=== PATIENT | female | born 1975 | race African-American/Black ===

== ENCOUNTER 2016-11-11 15:40 | Emergency (ER) | payer MEDICAID ==
[~2016-11-11] VITALS: Ht 167.6 cm; Wt 55.3 kg
[~2016-11-11 15:40] MED LIST: ADVAIR 100-501 EACH INH; IBUPROFEN800 MG ORAL
[2016-11-11 16:02] VITALS: BP 122/55
--- NOTE | 2016-11-11 16:14 | Emergency Room Report ---
History of Present Illness General Chief Complaint: Dyspnea/Respdistress Source: Patient Present Illness HPI 41-year-old female presents to emergency Department complaining of cough and wheezing x2 days with history of asthma. Patient states that her albuterol inhaler treatments at home are not working patient states she is currently out of her prescription Dulera and is forced to use old albuterol inhaler which provides minimal relief. She is also requesting medication refill for Dulera. She denies nausea, vomiting, fevers, chills, dyspnea. Patients denies cardiac disease or lower extremity edema. Denies CP, Palpitations, LOC, AMS, dizziness, Changes in Vision, Sensation, paresthesias, or a sudden severe headache. Allergies: Coded Allergies: No Known Allergies (Unverified , 10/04/14) Patient History Past Medical History: see triage record, asthma Past Surgical History: none Pertinent Family History: none Last Menstrual Period: 10/31/16 Now: No Immunizations: UTD Reviewed Nursing Documentation: PMH: Agreed, PSxH: Agreed Nursing Documentation-PMH Hx Asthma: Yes Review of Systems All Other Systems: negative except mentioned in HPI Physical Exam Vital Signs Date Time Temp Pulse Resp B/P Pulse Ox O2 Delivery O2 Flow Rate FiO2 11/11/16 15:52 98.2 84 20 122/55 96 Room Air Sp02 EP Interpretation: reviewed, normal General Appearance: no apparent distress, alert, GCS 15, non-toxic Head: normocephalic, atraumatic Eyes: bilateral eye PERRL, bilateral eye normal inspection ENT: hearing grossly normal, normal pharynx, no angioedema, normal voice Neck: full range of motion, supple/symm/no masses Respiratory: chest non-tender, lungs clear, normal breath sounds, speaking full sentences, wheezing - scant diffuse expiratory wheezes Cardiovascular #1: regular rate, rhythm, no edema Gastrointestinal: normal bowel sounds, non tender, soft, no guarding, no rebound Rectal: deferred Genitourinary: normal inspection, no CVA tenderness Musculoskeletal: back normal, gait/station normal, normal range of motion, non- tender, no calf tenderness Neurologic: alert, oriented x3, responsive, motor strength/tone normal, sensory intact, speech normal Psychiatric: judgement/insight normal, memory normal, mood/affect normal, no suicidal/homicidal ideation Reflexes: 4+ bicep (R), 4+ bicep (L), 4+ tricep (R), 4+ tricep (L), 4+ knee (R) , 4+ knee (L) Skin: normal color, no rash, warm/dry, well hydrated Lymphatic: no adenopathy Medical Decision Making PA Attestation Dr. pitts is my supervising Physician whom patient management has been discussed with. Diagnostic Impression: Primary Impression: Asthma exacerbation, mild ER Course Pt. presents to the ED c/o cough and wheezing x 2 days, Pt. has a hx of asthma, and inhaler treatments at home are not helping as she is out of her dulera and only has albuterol. pt. request dulera refill as well. Ddx considered but are not limited to asthma exacerbation, CHF, URI, pneumonia, PE, strep pharyngitis, meningitis. Vital signs: Pt. is afebrile, VS are WNL H&PE are most consistent with URI, asthma exacerbation ORDERS: none required at this time, the diagnosis is clinical ED INTERVENTIONS: -Albuterol nebulized treatment. - re-examination post nebulized treatment lungs are CTA bilaterally. DISCHARGE: At this time pt. is stable for d/c to home. Will provide printed patient care instructions, and any necessary prescriptions. Care plan and follow up instructions have been discussed with the patient prior to discharge. Last Vital Signs Date Time Temp Pulse Resp B/P Pulse Ox O2 Delivery O2 Flow Rate FiO2 11/11/16 16:02 97.8 78 19 122/55 96 Room Air Patient Instructions: Asthma, Adult, [id number] Additional Instructions: Take medications as directed. Follow up with PCP in 3-5 days Return sooner to ED if new symptoms occur, or current symptoms become worse. Pat Gutierrez Nov 11, 2016 16:14
[2016-11-11] MEDS ORDERED: Albuterol ud Inhalation HHN ONE (16:15)
[2016-11-11] MEDS ORDERED: DULERA 100 MCG/13 GM INH (16:34)
[2016-11-11 16:43] VITALS: BP 120/62
== END 2016-11-11 16:43 | disposition home or self-care (01) ==
LOC: EMR 16:20
DX: J45.901 Unspecified asthma with (acute) exacerbation (principal)
CPT/HCPCS: 94640; 94664; 99283

== ENCOUNTER 2017-03-15 18:21 | Emergency (ER) | payer MEDICAID ==
[~2017-03-15] VITALS: Ht 165.1 cm; Wt 55.3 kg
[~2017-03-15 18:21] MED LIST changes: +DULERA 100 MCG/13 GM INH
[2017-03-15] MEDS ORDERED: KENALOG 0.5% CR15 GM TP (20:12)
[2017-03-15] MEDS ORDERED: CEPHALEXIN500 MG ORAL (20:12)
[2017-03-15 20:35] VITALS: BP 116/72
--- NOTE | 2017-03-15 22:05 | Emergency Room Report ---
History of Present Illness General Chief Complaint: Skin Rash/Abscess Source: Patient Present Illness HPI The patient is a 42-year-old female presenting for possible allergic reaction. The patient states that she had developed an infection of the left side of the face 2 weeks prior and was placed on Keflex which was working. She was also given a topical antibiotic And then began to develop a rash in the areas where she placed it. The affected area on the face was initially only painful but then began to itch after applying this antibiotic. Pain is now described as a 5 /10 dull ache to the left side of the mouth and does not radiate. Pain worse with touch. The patient states that the swelling to the area has decreased. Patient states that she has 2 days left of antibiotics. She denies any known allergies. She denies any other symptoms including fever, chills, sore throat, cough, shortness of breath, chest pain Allergies: Coded Allergies: No Known Allergies (Unverified , 03/15/17) Patient History Past Medical History: see triage record Pertinent Family History: none Last Menstrual Period: february 20 Now: No Reviewed Nursing Documentation: PMH: Agreed, PSxH: Agreed Nursing Documentation-PMH Past Medical History: No History, Except For Hx Asthma: Yes Review of Systems All Other Systems: negative except mentioned in HPI Physical Exam Vital Signs Date Time Temp Pulse Resp B/P Pulse Ox O2 Delivery O2 Flow Rate FiO2 03/15/17 19:13 97.9 75 16 116/72 98 Sp02 EP Interpretation: reviewed, normal General Appearance: no apparent distress, alert, GCS 15, non-toxic Head: normocephalic, atraumatic Eyes: bilateral eye PERRL, bilateral eye normal inspection ENT: hearing grossly normal, normal pharynx, no angioedema, normal voice, uvula midline Neck: full range of motion, supple/symm/no masses Respiratory: chest non-tender, lungs clear, normal breath sounds, speaking full sentences Musculoskeletal: back normal, gait/station normal, normal range of motion, non- tender Neurologic: alert, oriented x3, responsive, motor strength/tone normal, sensory intact, speech normal Psychiatric: judgement/insight normal, memory normal, mood/affect normal, no suicidal/homicidal ideation Skin: warm/dry, normal turgor, rash - Lateral to L corner of mouth: 3cm ovoid erythematous maculopapular lesion. Lymphatic: no adenopathy Medical Decision Making PA Attestation Dr. Darby is my supervising physician. Patient management was discussed with my supervising physician Diagnostic Impression: Primary Impression: Cellulitis Qualified Codes: L03.211 - Cellulitis of face Additional Impression: Allergic reaction Qualified Codes: T78.40XA - Allergy, unspecified, initial encounter ER Course The patient is a 42-year-old female presenting for possible allergic reaction Ddx considered include but not limited to insect bite, contact dermatitis, eczema, cellulitis PE: vitals WNL. NAD Lateral to L corner of mouth: 3cm ovoid erythematous maculopapular lesion. No lymphadenopathy. No angioedema Lungs clear to auscultation bilaterally The patient will discontinue using the topical ointment. She is given an extension of Keflex and will apply steroid cream to the effected area. She will follow up with PMD. ER precautions are given Last Vital Signs Date Time Temp Pulse Resp B/P Pulse Ox O2 Delivery O2 Flow Rate FiO2 03/15/17 19:13 97.9 75 16 116/72 98 Status: improved Disposition: HOME, SELF-CARE Condition: Improved Scripts Cephalexin* (KEFLEX*) 500 Mg Capsule 500 MG ORAL EVERY 12 HOURS, #10 CAP 0 Refills Prov: CHERIE BENDER 03/15/17 Triamcinolone Acet (Triamcinolone Acetonide) 15 Gm Cream..g. 1 APPLIC TP TID, #15 GM Prov: CHERIE BENDERA. 03/15/17 Referrals: NON PHYSICIAN (PCP) Patient Instructions: Rash Additional Instructions: I discussed my findings with the patient. All questions and concerns have been answered. Treatment and medication compliance have been addressed. I advised the patient that they need to follow up with PMD in 3-5 days. Return to ED if symptoms worsen, new symptoms arise, or if needed for any reason. Patient verbalized understanding of discharge instructions. Please see beater dumper if symptoms continue or worsen CHERIE BENDER March 15, 2017 22:05
== END 2017-03-15 20:32 | disposition home or self-care (01) ==
LOC: EMR 19:45
DX: L03.211 Cellulitis of face (principal); T78.40XA Allergy, unspecified, initial encounter; X58.XXXA Exposure to other specified factors, initial encounter; Y93.9 Activity, unspecified; Y92.9 Unspecified place or not applicable; J45.909 Unspecified asthma, uncomplicated
CPT/HCPCS: 99284

== ENCOUNTER 2017-07-14 07:51 | Emergency (ER) | payer MEDICAID ==
[~2017-07-14] VITALS: Ht 167.6 cm; Wt 54.4 kg
[~2017-07-14 07:51] MED LIST changes: +CEPHALEXIN500 MG ORAL; +KENALOG 0.5% CR15 GM TP
[2017-07-14 08:01] VITALS: BP 114/75
--- NOTE | 2017-07-14 08:09 | Emergency Room Report ---
History of Present Illness General Chief Complaint: Nausea, Vomiting, and Diarrhea Source: Patient, Medical Record Present Illness HPI 42 yo female with no sig pmhx p/w nausea vomiting and diarrhea for one day. Patient states symptoms started yesterday after she had lunch at [employer] restaurant. Pt reports nausea but no vomiting, more than 7 episodes of watery non bloody diarrhea. Patient also complains of mild generalized crampy abdominal pain. Denies fever, chills. No hx of abdominal surgeries. Allergies: Coded Allergies: No Known Allergies (Unverified , 03/15/17) Patient History Past Medical History: see triage record Past Surgical History: none Pertinent Family History: none Last Menstrual Period: 06/23/17 Now: No Reviewed Nursing Documentation: PMH: Agreed, PSxH: Agreed Nursing Documentation-PMH Past Medical History: No History, Except For Hx Asthma: Yes Review of Systems All Other Systems: negative except mentioned in HPI Physical Exam Vital Signs Date Time Temp Pulse Resp B/P (MAP) Pulse Ox O2 Delivery O2 Flow Rate FiO2 07/14/17 07:55 97.9 70 14 114/75 100 Room Air Sp02 EP Interpretation: reviewed, normal General Appearance: normal inspection, well appearing, no apparent distress, alert, GCS 15, non-toxic, other - Conversing appropriately at bedside, appears well-hydrated Head: normocephalic, atraumatic Eyes: bilateral eye normal inspection, bilateral eye PERRL, bilateral eye EOMI ENT: normal ENT inspection, normal pharynx, normal voice, moist mucus membranes Neck: normal inspection, full range of motion, supple Respiratory: normal inspection, lungs clear, normal breath sounds, no respiratory distress, no retraction, no wheezing, speaking full sentences, chest symmetrical Cardiovascular #1: normal inspection, regular rate, rhythm, no edema, normal capillary refill Cardiovascular #2: 2+ radial (R), 2+ radial (L) Gastrointestinal: normal inspection, non tender, soft, non-distended, no guarding, other - Nontender all quadrants of the abdomen. Musculoskeletal: normal inspection, back normal, normal range of motion, non- tender Neurologic: normal inspection, alert, oriented x3, responsive, motor strength/ tone normal, sensory intact, normal gait, speech normal Psychiatric: normal inspection, judgement/insight normal, memory normal Skin: normal inspection, normal color, no rash, warm/dry, well hydrated, normal turgor Medical Decision Making Diagnostic Impression: Primary Impression: Nausea, vomiting, and diarrhea ER Course 42 yo female with nausea vomiting and diarrhea Differential Diagnosis: Gastritis, gastroenteritis, cholecystitis, appendicitis, diverticulitis, UTI/ pyelo At this time abdomen is soft nontender, not likely to have acute intra- abdominal surgical pathology, will hold CT for now. Plan: Basic labs, ua Zofran, IVF ER course: Patient has remained stable during ED stay.Received fluids Repeat abdominal exam is nontender. no vomiting in ED. appears well Lipase mildly elevated, but not criteria for pancreatitis Disposition: Patient is to be discharged to home. Patient is instructed to follow up with their primary care doctor within 2 days. Strict return precautions discussed with patient such as fever, chills, worsening/severe pain, nausea, vomiting, which may indicate severe illness. Patient verbalizes understanding and agrees with plan. Please note that this Emergency Department Report was dictated using [employer] cutting machine feeder technology software, occasionally this can lead to erroneous entry secondary to interpretation by the dictation equipment Laboratory Tests Test 07/14/17 03:41 07/14/17 08:00 Urine Color Pale yellow Urine Appearance Clear Urine pH 5 (4.5-8.0) Urine Specific [place] 1.020 (1.005-1.035) Urine Protein Negative (NEGATIVE) Urine Glucose (UA) Negative (NEGATIVE) Urine Ketones Negative (NEGATIVE) Urine Occult Blood Negative (NEGATIVE) Urine Nitrite Negative (NEGATIVE) Urine Bilirubin Negative (NEGATIVE) Urine Urobilinogen Normal MG/DL (0.0-1.0) Urine Leukocyte Esterase 1+ (NEGATIVE) H Urine RBC 0-2 /HPF (0 - 2) Urine WBC 2-4 /HPF (0 - 2) Urine Squamous Epithelial Cells Moderate /LPF (NONE/OCC) H Urine Bacteria Few /HPF (NONE) Urine HCG, Qualitative Negative White Blood Count 5.2 K/UL (4.8-10.8) Red Blood Count 4.18 M/UL (4.20-5.40) L Hemoglobin 12.3 G/DL (12.0-16.0) Hematocrit 38.1 % (37.0-47.0) Mean Corpuscular Volume 91 FL (80-99) Mean Corpuscular Hemoglobin 29.5 PG (27.0-31.0) Mean Corpuscular Hemoglobin Concent 32.4 G/DL (32.0-36.0) Red Cell Distribution Width 14.7 % (11.6-14.8) Platelet Count 375 K/UL (150-450) Mean Platelet Volume 6.5 FL (6.5-10.1) Neutrophils (%) (Auto) 53.4 % (45.0-75.0) Lymphocytes (%) (Auto) 24.9 % (20.0-45.0) Monocytes (%) (Auto) 10.4 % (1.0-10.0) H Eosinophils (%) (Auto) 9.4 % (0.0-3.0) H Basophils (%) (Auto) 1.9 % (0.0-2.0) Sodium Level 135 mEQ/L (135-145) Potassium Level 4.0 mEQ/L (3.4-4.9) Chloride Level 102 mEQ/L (98-107) Carbon Dioxide Level 22 mEQ/L (20-30) Anion Gap 11 (5-15) Blood Urea Nitrogen 13 mg/dL (7-23) Creatinine 1.1 mg/dL (0.5-0.9) H Estimate Glomerular Filtration Rate > 60 mL/min (>60) Glucose Level 99 mg/dL (74-106) Calcium Level 9.0 mg/dL (8.6-10.2) Total Bilirubin 0.5 mg/dL (0.0-1.2) Aspartate Amino Transferase (AST) 17 U/L (5-40) Alanine Aminotransferase (ALT) 10 U/L (3-33) Alkaline Phosphatase 57 U/L (35-104) Total Protein 7.7 g/dL (6.6-8.7) Albumin 4.4 g/dL (3.5-5.2) Globulin 3.3 g/dL Albumin/Globulin Ratio 1.3 (1.0-2.7) Lipase 115 U/L (< 60) H Rhythm Strip Diag. Results EP Interpretation: yes Rate: 70 Rhythm: NSR, no PVC's, no ectopy Last Vital Signs Date Time Temp Pulse Resp B/P (MAP) Pulse Ox O2 Delivery O2 Flow Rate FiO2 07/14/17 08:01 14 114/75 100 Room Air 07/14/17 07:55 97.9 70 Disposition: HOME, SELF-CARE Condition: Improved Retino,Clairose M.D. Jul 14, 2017 08:09
[2017-07-14 08:27] LABS: BASOPHILS % (AUTO) 1.9 % (0.0-2.0); EOSINOPHILS % (AUTO) 9.4 % (0.0-3.0); LYMPHOCYTES % (AUTO) 24.9 % (20.0-45.0); MEAN CORPUSCULAR HEMOGLOBIN 29.5 PG (27.0-31.0); MEAN CORPUSCULAR HGB CONC 32.4 G/DL (32.0-36.0); MEAN CORPUSCULAR VOLUME 91 FL (80-99); MEAN PLATELET VOLUME 6.5 FL (6.5-10.1); MONOCYTES % (AUTO) 10.4 % (1.0-10.0); NEUTROPHILS % (AUTO) 53.4 % (45.0-75.0); PLATELET COUNT 375 K/UL (150-450); RED BLOOD COUNT 4.18 M/UL (4.20-5.40); RED CELL DISTRIBUTION WIDTH 14.7 % (11.6-14.8); WHITE BLOOD COUNT 5.2 K/UL (4.8-10.8)
[2017-07-14 08:35] VITALS: BP 111/63
[2017-07-14 09:03] LABS: APPEARANCE,URINE CLEAR; KETONES,URINE NEGATIVE (NEGATIVE); LEUKOCYTE ESTERASE ,URINE 1+ (NEGATIVE); NITRITE,URINE NEGATIVE (NEGATIVE); PH,URINE 5 (4.5-8.0); PROTEIN,URINE NEGATIVE (NEGATIVE); UROBILINOGEN,URINE NORMAL MG/DL (0.0-1.0)
[2017-07-14 09:04] LABS: ALANINE AMINOTRANSFERASE 10 U/L (3-33); ALBUMIN/GLOBULIN RATIO 1.3 (1.0-2.7); ANION GAP 11 (5-15); ASPARTATE AMINO TRANSFERASE 17 U/L (5-40); CARBON DIOXIDE 22 mEQ/L (20-30); CHLORIDE 102 mEQ/L (98-107); CREATININE 1.1 mg/dL (0.5-0.9); GLOMERULAR FILTRATION RATE > 60 mL/min (>60); HEMOLYSIS 0; LIPASE 115 U/L (< 60); SODIUM 135 mEQ/L (135-145); TOTAL PROTEIN 7.7 g/dL (6.6-8.7)
[2017-07-14 09:13] LABS: BACTERIA,URINE FEW /HPF; RBC,URINE 0-2 /HPF (0 - 2); SQUAMOUS EPITHELIAL CELL,UR MODERATE /LPF (NONE/OCC)
[2017-07-14 10:59] VITALS: BP 101/62
== END 2017-07-14 10:50 | disposition home or self-care (01) ==
LOC: EMR 08:21
DX: R11.2 Nausea with vomiting, unspecified (principal); R19.7 Diarrhea, unspecified; J45.909 Unspecified asthma, uncomplicated
CPT/HCPCS: 36415; 80053; 81003; 81025; 82962; 83690; 85025; 96361; 96374; 99284; J2405

== ENCOUNTER 2017-08-01 12:59 | Emergency (ER) | payer MEDICAID ==
[~2017-08-01] VITALS: Ht 170.2 cm; Wt 56.7 kg
[2017-08-01] MEDS ORDERED: DuoNeb 0.5-3(2.5)mg/3ml neb HHN ONE (13:45)
[2017-08-01] MEDS ORDERED: DULERA 100 MCG/13 GM INH (13:46)
[2017-08-01 14:14] VITALS: BP 111/77
--- NOTE | 2017-08-04 14:36 | Emergency Room Report ---
History of Present Illness General Chief Complaint: Dyspnea/Respdistress Source: Patient Present Illness HPI This is a 42-year-old female who presented after increased difficulty breathing. Patient had prior history of asthma. Patient had been out of her medication which was Dulera inhaler. The patient had had not been having any fever. She denied productive cough. She denied any chest pain. Patient stated that she had interpreted nonproductive cough which is worse since past few days. The patient denies severe shortness of breath this time. She denied any leg pain or swelling. Allergies: Coded Allergies: No Known Allergies (Unverified , 03/15/17) Patient History Past Medical History: asthma Last Menstrual Period: 9-14 Now: No Reviewed Nursing Documentation: PMH: Agreed, PSxH: Agreed Nursing Documentation-PMH Past Medical History: No History, Except For Hx Asthma: Yes Review of Systems All Other Systems: negative except mentioned in HPI Physical Exam Vital Signs Date Time Temp Pulse Resp B/P (MAP) Pulse Ox O2 Delivery O2 Flow Rate FiO2 08/01/17 13:12 98.1 80 18 111/77 96 Room Air General Appearance: well appearing, no apparent distress, alert, GCS 15 Head: normocephalic, atraumatic ENT: hearing grossly normal, normal voice Neck: full range of motion, supple Respiratory: no respiratory distress, speaking full sentences Cardiovascular #1: normal inspection, regular rate, rhythm, no edema Gastrointestinal: normal inspection, soft Musculoskeletal: normal inspection, no calf tenderness Neurologic: normal inspection, alert, oriented x3, responsive, normal gait Psychiatric: mood/affect normal Skin: no rash Medical Decision Making Diagnostic Impression: Primary Impression: Asthma ER Course Patient presented for cough. Differential diagnosis included but was not limited to bronchitis, pneumonia, pulmonary embolism, pericarditis, asthma, foreign body. Patient's benign exam and does not appear to require any further imaging or laboratory testing at this time. The patient given a breathing treatment. She had improvement in her symptoms. Patient was given prescription for Dulera. Patient was advised followup with her primary care physician in one to 2 days. She is to return if she began having increased shortness breath productive cough high fever or other concerns Last Vital Signs Date Time Temp Pulse Resp B/P (MAP) Pulse Ox O2 Delivery O2 Flow Rate FiO2 08/01/17 14:14 98.1 18 111/77 100 Room Air 08/01/17 14:04 90 Status: improved Disposition: HOME, SELF-CARE Condition: Stable Scripts Mometasone/Formoterol (DULERA 100 MCG/5 MCG INHALER) 13 Gm Hfa.aer.ad 2 PUFFS INH EVERY 12 HOURS, #13 GM Prov: Guillermo Rodriguez 08/01/17 Referrals: NON PHYSICIAN Patient Instructions: Asthma Attack Prevention Guillermo Rodriguez Aug 04, 2017 14:36
== END 2017-08-01 14:16 | disposition home or self-care (01) ==
LOC: EMR 13:50
DX: J45.909 Unspecified asthma, uncomplicated (principal)
CPT/HCPCS: 94640; 94664; 99283; J7620

== ENCOUNTER 2017-10-15 16:33 | Emergency (ER) | payer MEDICAID ==
[~2017-10-15] VITALS: Ht 167.6 cm; Wt 55.8 kg
[2017-10-15] MEDS ORDERED: Ipratropium 0.02% Inh Soln 2.5ml UD HHN ONE (17:00)
[2017-10-15] MEDS ORDERED: Albuterol ud Inhalation HHN ONE (17:00)
[2017-10-15] MEDS ORDERED: DULERA 100 MCG/13 GM INH (18:07)
[2017-10-15] MEDS ORDERED: PROMETHAZINE-D118 ML ORAL (18:07)
[2017-10-15 18:28] VITALS: BP 115/80
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
== END 2017-10-15 18:28 | disposition home or self-care (01) ==
LOC: EMR 17:17
DX: J45.909 Unspecified asthma, uncomplicated (principal)
CPT/HCPCS: 94640; 94664; 99284

== ENCOUNTER 2017-11-08 16:57 | Emergency (ER) | payer MEDICAID ==
[~2017-11-08] VITALS: Ht 167.6 cm; Wt 54.9 kg
[~2017-11-08 16:57] MED LIST changes: +PROMETHAZINE-D118 ML ORAL
[2017-11-08] MEDS ORDERED: VENTOLIN HFA18 GM INH (17:17)
--- NOTE | 2017-11-08 17:56 | Emergency Room Report ---
History of Present Illness General Chief Complaint: Upper Respiratory Illness Source: Patient Present Illness HPI Patient presents with several days of worsening asthma. She is coughing up phlegm doesn't have a color. She's run out of her inhaler. This is not her worse attack. She feels that she needs prednisone at this time. Denies chest pain, vomiting, dysuria, change in bowels, rash, headache. Allergies: Coded Allergies: No Known Allergies (Unverified , 03/15/17) Patient History Past Medical History: see triage record Social History: Reports: smoking Social History Narrative from home Last Menstrual Period: 10/13/17 Now: No Reviewed Nursing Documentation: PMH: Agreed, PSxH: Agreed Nursing Documentation-PMH Hx Asthma: Yes Review of Systems All Other Systems: negative except mentioned in HPI Physical Exam Vital Signs Date Time Temp Pulse Resp B/P (MAP) Pulse Ox O2 Delivery O2 Flow Rate FiO2 11/08/17 17:14 98.2 81 19 118/73 96 Room Air Sp02 EP Interpretation: reviewed, normal General Appearance: well appearing, no apparent distress, GCS 15 Head: normocephalic Eyes: bilateral eye normal inspection, bilateral eye PERRL ENT: moist mucus membranes Neck: supple Respiratory: wheezing, expiration Cardiovascular #1: regular rate, rhythm Cardiovascular #2: 2+ radial (R) Gastrointestinal: normal inspection, normal bowel sounds, non tender, no mass, non-distended, scaphoid Musculoskeletal: back normal, gait/station normal, normal range of motion, no calf tenderness Neurologic: alert, oriented x3, grossly normal Psychiatric: mood/affect normal Skin: normal inspection, warm/dry Medical Decision Making Diagnostic Impression: Primary Impression: Asthma Qualified Codes: J45.41 - Moderate persistent asthma with (acute) exacerbation ER Course Patient presents with worsened asthma. Ddx: asthma, pna, bronchitis, flu amongst others. Afebrile. Needs breathing treatment and prednisone. Hx against need for antibiotics or flu treatment. Improved with treatments, clear. Patient stable for outpatient observation and treatment. Last Vital Signs Date Time Temp Pulse Resp B/P (MAP) Pulse Ox O2 Delivery O2 Flow Rate FiO2 11/08/17 19:05 98.1 78 18 122/75 100 Room Air 97 Status: improved Disposition: HOME, SELF-CARE Condition: Improved Scripts Promethazine/Dextromethorphan (Promethazine-Dm Syrup) 473 Ml Syrup 1 TSP ORAL Q6H Y for For Cough, #118 ML 0 Refills Prov: uJlio Kearney M.D. 11/08/17 Prednisone* (PREDNISONE*) 20 Mg Tablet 40 MG ORAL DAILY, #10 TAB Prov: Julio Kearney M.D. 11/08/17 Albuterol Sulfate* (ALBUTEROL SULFATE MDI*) 8.5 Gm Hfa.aer.ad 2 PUFF INH Q6H, #1 EA 1 Refill Prov: Julio Kearney M.D. 11/08/17 Julio Kearney M.D. Nov 08, 2017 17:55
[2017-11-08] MEDS ORDERED: ALBUTEROL SULF8.5 GM INH (17:59)
[2017-11-08] MEDS ORDERED: PHENERGAN6.25 MG/5 ORAL (17:59)
[2017-11-08] MEDS ORDERED: PREDNISONE20 MG ORAL (17:59)
[2017-11-08] MEDS ORDERED: Albuterol ud Inhalation HHN ONE (18:00)
[2017-11-08] MEDS ORDERED: Ipratropium 0.02% Inh Soln 2.5ml UD HHN ONE (18:00)
[2017-11-08 19:05] VITALS: BP 122/75
== END 2017-11-08 19:05 | disposition home or self-care (01) ==
LOC: EMR 19:01
DX: J45.909 Unspecified asthma, uncomplicated (principal)
CPT/HCPCS: 94640; 94664; 99284; J7512

== ENCOUNTER 2017-12-10 17:16 | Emergency (ER) | payer MEDICAID ==
[~2017-12-10] VITALS: Ht 167.6 cm; Wt 55.3 kg
[~2017-12-10 17:16] MED LIST changes: +ALBUTEROL SULF8.5 GM INH; +PHENERGAN6.25 MG/5 ORAL; +PREDNISONE20 MG ORAL; +VENTOLIN HFA18 GM INH
--- NOTE | 2017-12-10 17:42 | Emergency Room Report ---
History of Present Illness General Chief Complaint: Dyspnea/Respdistress Source: Patient Present Illness HPI 42-year-old female presents to the emergency department complaining of wheezing and an exacerbation of her asthma which has not been responding to her inhaled albuterol x3 days. Patient reports her symptoms are progressing. She denies productive cough, fevers, chills, neck pain or stiffness. Denies CP, Palpitations, LOC, AMS, dizziness, Changes in Vision, Sensation, paresthesias, or a sudden severe headache. Allergies: Coded Allergies: No Known Allergies (Unverified , 03/15/17) Patient History Past Medical History: see triage record Past Surgical History: none Pertinent Family History: none Last Menstrual Period: 11/13/17 Now: No Reviewed Nursing Documentation: PMH: Agreed, PSxH: Agreed Nursing Documentation-PMH Hx Asthma: Yes Review of Systems All Other Systems: negative except mentioned in HPI Physical Exam Vital Signs Date Time Temp Pulse Resp B/P (MAP) Pulse Ox O2 Delivery O2 Flow Rate FiO2 12/10/17 17:27 98.8 100 22 124/72 91 Room Air Sp02 EP Interpretation: reviewed, normal General Appearance: no apparent distress, alert, GCS 15, non-toxic Head: normocephalic, atraumatic ENT: hearing grossly normal, normal voice Neck: full range of motion Respiratory: chest non-tender, speaking full sentences, wheezing Cardiovascular #1: regular rate, rhythm, no edema Rectal: deferred Genitourinary: normal inspection Musculoskeletal: back normal, gait/station normal, normal range of motion, non- tender Neurologic: alert, oriented x3, responsive, motor strength/tone normal, sensory intact, speech normal, grossly normal Psychiatric: judgement/insight normal Skin: normal color, no rash, warm/dry, well hydrated Medical Decision Making PA Attestation Dr. Webber is my supervising Physician whom patient management has been discussed with. Diagnostic Impression: Primary Impression: Asthma exacerbation Qualified Codes: J45.21 - Mild intermittent asthma with (acute) exacerbation ER Course 42-year-old female presents to the emergency department complaining of wheezing and an exacerbation of her asthma which has not been responding to her inhaled albuterol x3 days. Patient reports her symptoms are progressing. She denies productive cough, fevers, chills, neck pain or stiffness. Denies CP, Palpitations, LOC, AMS, dizziness, Changes in Vision, Sensation, paresthesias, or a sudden severe headache. Ddx considered but are not limited to asthma exacerbation, CHF, URI, pneumonia, PE, strep pharyngitis, meningitis. Vital signs: Pt. is afebrile, VS are WNL H&PE are most consistent with URI, asthma exacerbation ORDERS: none required at this time, the diagnosis is clinical ED INTERVENTIONS: -Albuterol nebulized treatment. - re-examination post nebulized treatment lungs are CTA bilaterally. -Prednisone PO DISCHARGE: At this time pt. is stable for d/c to home. Will provide printed patient care instructions, and any necessary prescriptions. Care plan and follow up instructions have been discussed with the patient prior to discharge. Last Vital Signs Date Time Temp Pulse Resp B/P (MAP) Pulse Ox O2 Delivery O2 Flow Rate FiO2 12/10/17 17:29 100 22 Room Air 12/10/17 17:27 98.8 124/72 91 Disposition: HOME, SELF-CARE Condition: Stable Scripts Albuterol Sulfate* (ALBUTEROL SULFATE MDI*) 8.5 Gm Hfa.aer.ad 2 PUFF INH Q3H, #1 INH 0 Refills Prov: Pat Gutierrez 12/10/17 Prednisone* (PREDNISONE*) 20 Mg Tablet 40 MG ORAL DAILY for 5 Days, #10 TAB Prov: Pat Gutierrez 12/10/17 Patient Instructions: Asthma, Acute Bronchospasm Additional Instructions: Take medications as directed. Follow up with a Primary Care Provider in 3-5 days, even if your symptoms have resolved. --Please review list of primary care clinics, if you do not already have a primary care provider Return sooner to ED if new symptoms occur, or current symptoms become worse. - Please note that this Emergency Department Report was dictated using [employer] database developer technology software, occasionally this can lead to erroneous entry secondary to interpretation by the dictation equipment. Pat Gutierrez Dec 10, 2017 17:41
[2017-12-10] MEDS ORDERED: Albuterol ud Inhalation HHN ONE (17:45)
[2017-12-10] MEDS ORDERED: ALBUTEROL SULF8.5 GM INH (18:25)
[2017-12-10] MEDS ORDERED: PREDNISONE20 MG ORAL (18:25)
[2017-12-10 19:06] VITALS: BP 132/75
[2017-12-10 19:20] VITALS: BP 115/76
== END 2017-12-10 19:20 | disposition home or self-care (01) ==
LOC: EMR 17:31
DX: J45.901 Unspecified asthma with (acute) exacerbation (principal); R06.2 Wheezing
CPT/HCPCS: 94640; 94664; 99284; J7512

== ENCOUNTER 2018-08-28 14:24 | Emergency (ER) | payer MEDICAID ==
[~2018-08-28] VITALS: Ht 167.6 cm; Wt 54.4 kg
[2018-08-28] MEDS ORDERED: Albuterol ud Inhalation HHN ONE (14:45)
[2018-08-28] MEDS ORDERED: Ipratropium 0.02% Inh Soln 2.5ml UD HHN ONE (14:45)
[2018-08-28] MEDS ORDERED: PREDNISONE20 MG ORAL (15:29)
[2018-08-28] MEDS ORDERED: DULERA 100 MCG/13 GM INH (15:29)
[2018-08-28] MEDS ORDERED: ALBUTEROL SULF8.5 GM INH (15:29)
[2018-08-28 15:35] VITALS: BP 104/70
[2018-08-28 15:36] VITALS: BP 100/66
--- NOTE | 2018-08-28 16:15 | Emergency Room Report ---
History of Present Illness General Chief Complaint: Dyspnea/Respdistress Source: Patient Present Illness HPI 43-year-old female presents ED for evaluation. Notes cough and wheezing 2 days. Cough is dry. Denies fevers or chills. History of asthma. States she does not have an inhaler at this time. Denies smoking. Denies sick contacts or recent travel. No other aggravating relieving factors. Denies any other associated symptoms Allergies: Coded Allergies: No Known Allergies (Unverified , 03/15/17) Patient History Past Medical History: asthma Past Surgical History: none Pertinent Family History: none Social History: Denies: smoking, alcohol use, drug use Now: No Immunizations: UTD Reviewed Nursing Documentation: PMH: Agreed; PSxH: Agreed Nursing Documentation-PMH Hx Asthma: Yes Physical Exam Vital Signs Date Time Temp Pulse Resp B/P (MAP) Pulse Ox O2 Delivery O2 Flow Rate FiO2 08/28/18 14:29 98.9 89 18 100/66 95 Room Air 99.0 08/28/18 14:47 21 Sp02 EP Interpretation: reviewed, normal General Appearance: no apparent distress, alert, GCS 15, non-toxic Head: normocephalic Eyes: bilateral eye normal inspection, bilateral eye PERRL ENT: normal ENT inspection Neck: normal inspection Respiratory: wheezing Cardiovascular #1: regular rate, rhythm, no edema Gastrointestinal: normal inspection Rectal: deferred Genitourinary: no CVA tenderness Musculoskeletal: normal inspection Neurologic: alert, oriented x3, responsive, motor strength/tone normal, sensory intact, speech normal Psychiatric: normal inspection Skin: normal inspection Lymphatic: normal inspection Medical Decision Making Diagnostic Impression: Primary Impression: Bronchitis ER Course Hospital Course 43-year-old female presents to ED complaining of cough, wheezing Differential diagnoses include: URI, bronchitis, asthma/COPD, pneumonia Clinical course Patient placed on stretcher. After initial history and physical I ordered prednisone and nebulizer treatment. Upon reassessment patient states cough and symptoms have improved. Findings consistent with bronchitis. Discussed findings with patient. safe for discharge with close outpatient followup. we will prescribe inhaler, steroids. patient states she has a PMD Diagnosis - bronchitis Stable and discharged home with prescriptions for Rx prednisone, dulera, albuterol. Instructed to followup with PMD. Return to ED if symptoms recur or worsen Last Vital Signs Date Time Temp Pulse Resp B/P (MAP) Pulse Ox O2 Delivery O2 Flow Rate FiO2 08/28/18 15:36 98.9 19 100/66 99 Room Air 21 99.0 08/28/18 15:35 89 Status: improved Disposition: HOME, SELF-CARE Condition: Stable Scripts Prednisone* (PREDNISONE*) 20 Mg Tablet 40 MG ORAL DAILY, #10 TAB Prov: Aravind Zapata MD 08/28/18 Mometasone/Formoterol (DULERA 100 MCG/5 MCG INHALER) 13 Gm Hfa.aer.ad 2 PUFFS INH EVERY 12 HOURS, #13 GM Prov: Aravind Zapata MD 08/28/18 Albuterol Sulfate* (ALBUTEROL SULFATE MDI*) 8.5 Gm Hfa.aer.ad 2 PUFF INH Q6H, #1 EA 0 Refills Prov: Aravind Zapata MD 08/28/18 Patient Instructions: Asthma, Adult, [id number] Aravind Zapata MD Aug 28, 2018 16:15
== END 2018-08-28 15:36 | disposition home or self-care (01) ==
LOC: EMR 15:05
DX: J45.909 Unspecified asthma, uncomplicated (principal)
CPT/HCPCS: 94640; 94664; 99284; J7512

== ENCOUNTER 2019-05-06 20:37 | Emergency (ER) | payer MEDICAID ==
[~2019-05-06] VITALS: Ht 167.6 cm; Wt 56.7 kg
[2019-05-06 21:00] VITALS: BP 118/71
[2019-05-06] MEDS ORDERED: Albuterol ud Inhalation HHN ONE (21:00)
[2019-05-06] MEDS ORDERED: Ipratropium 0.02% Inh Soln 2.5ml UD HHN ONE (21:00)
--- NOTE | 2019-05-06 21:00 | NUR ---
ER Nurse Note: Pt came from home c/o difficulty breathing since AM. Pt stated she ran out of her medication, went to an event and aggivated her symptoms. Wheezes heard, denies pain. Will continue to monitor.
--- NOTE | 2019-05-06 21:03 | Emergency Room Report ---
History of Present Illness General Chief Complaint: Dyspnea/Respdistress Source: Patient Present Illness HPI This is a 44-year-old female with a history of asthma. She presents with chief complaint of wheezing and shortness of breath. Onset today. She has been out of her inhalers for last week. No nausea no vomiting. No fever chills. She smokes marijuana. He denies any chest pain. Coughing is nonproductive in nature. Worse with exertion. Worse with inspiration. Better with rest. Last steroid use was 2 months ago. Allergies: Coded Allergies: No Known Allergies (Unverified , 05/06/19) Patient History Past Medical History: see triage record, old chart reviewed Past Surgical History: none Pertinent Family History: none Social History: Reports: smoking Now: No Immunizations: other Reviewed Nursing Documentation: PMH: Agreed; PSxH: Agreed Nursing Documentation-PMH Hx Asthma: Yes Review of Systems Eye: Denies: eye pain, blurred vision ENT: Denies: ear pain, nose congestion, throat swelling Respiratory: Reports: shortness of breath, wheezing; Denies: cough Cardiovascular: Denies: chest pain, palpitations Gastrointestinal: Denies: abdominal pain, diarrhea, nausea, vomiting Musculoskeletal: Denies: back pain, joint pain Skin: Denies: rash Neurological: Denies: headache, numbness Endocrine: Denies: increased thirst, increased urine Hematologic/Lymphatic: Denies: easy bruising All Other Systems: negative except mentioned in HPI Physical Exam Vital Signs Date Time Temp Pulse Resp B/P (MAP) Pulse Ox O2 Delivery O2 Flow Rate FiO2 05/06/19 20:48 98.2 77 16 118/71 (87) 95 Room Air Vitals normal Sp02 EP Interpretation: reviewed, normal General Appearance: well appearing, no apparent distress, alert Head: normocephalic, atraumatic Eyes: bilateral eye PERRL, bilateral eye EOMI ENT: hearing grossly normal, normal pharynx Neck: full range of motion, supple, no meningismus Respiratory: chest non-tender, normal breath sounds, wheezing Cardiovascular #1: regular rate, rhythm, no murmur Gastrointestinal: normal bowel sounds, non tender, no mass, no organomegaly, no bruit, non-distended Musculoskeletal: back normal, gait/station normal, normal range of motion Psychiatric: mood/affect normal Medical Decision Making Diagnostic Impression: Primary Impression: Asthma with exacerbation Qualified Codes: J45.21 - Mild intermittent asthma with (acute) exacerbation ER Course Patient with an asthma exacerbation. No evidence of ACS, PE, dissection to name a few. Better after breathing treatment. Will discharge home. Last Vital Signs Date Time Temp Pulse Resp B/P (MAP) Pulse Ox O2 Delivery O2 Flow Rate FiO2 05/06/19 20:48 98.2 77 16 118/71 (87) 95 Room Air Status: improved Disposition: HOME, SELF-CARE Condition: Stable Scripts Mometasone/Formoterol (DULERA 200 MCG/5 MCG INHALER) 13 Gm Hfa.aer.ad 2 PUFFS IH DAILY, #13 GM Prov: Braden George MD 05/06/19 Prednisone* (PREDNISONE*) 20 Mg Tablet 40 MG ORAL DAILY, #8 TAB Prov: Braden George MD 05/06/19 Albuterol Sulfate* (ALBUTEROL SULFATE MDI*) 8.5 Gm Hfa.aer.ad 2 PUFF INH Q4H PRN for cough/wheezing, #1 EA 0 Refills Prov: Braden George MD 05/06/19 Additional Instructions: Stop smoking. Follow-up with your doctor in 7 days. Return if worse. Braden George MD May 06, 2019 21:03
[2019-05-06] MEDS ORDERED: DULERA 200 MCG/13 GM IH (21:08)
[2019-05-06] MEDS ORDERED: PREDNISONE20 MG ORAL (21:08)
[2019-05-06] MEDS ORDERED: ALBUTEROL SULF8.5 GM INH (21:08)
[2019-05-06 21:45] VITALS: BP 118/71
--- NOTE | 2019-05-06 21:45 | NUR ---
ER Nurse Note: Breathing treatment completed; pt O2 sat >97% RA. Pt seen, treated, medically cleared for discharge by ERMD. Discharge instuctions and prescriptions given with repeat verbalization by pt. Emphasized to follow up with primay care provider. All orders completed per ERMD orders. Pt a&ox4, VSS, no signs of distress. ID band removed. Pt ambulaitory with steady gait, left with all belongings, left with own transportation.
== END 2019-05-06 21:45 | disposition home or self-care (01) ==
LOC: EMR 21:30
DX: J45.21 Mild intermittent asthma with (acute) exacerbation (principal); F12.90 Cannabis use, unspecified, uncomplicated; F17.200 Nicotine dependence, unspecified, uncomplicated
CPT/HCPCS: 94640; 94664; 99284; J7512

== ENCOUNTER 2019-09-03 15:42 | Emergency (ER) | payer MEDICAID ==
[~2019-09-03] VITALS: Ht 170.2 cm; Wt 56.7 kg
[~2019-09-03 15:42] MED LIST changes: +DULERA 200 MCG/13 GM IH
[2019-09-03] MEDS: Albuterol/Ipratropium 3ml neb HHN SCH ×4 (16:16→16:53)
[2019-09-03 16:41] VITALS: BP 112/71
--- NOTE | 2019-09-03 16:42 | NUR ---
ED Nurse Note:pt. came with c/o asthma, received breathing treatment
[2019-09-03] MEDS ORDERED: VENTOLIN HFA18 GM INH (16:44)
--- NOTE | 2019-09-03 16:44 | Emergency Room Report ---
History of Present Illness General Chief Complaint: Asthma Source: Medical Record Present Illness HPI 44-year-old female with history of asthma currently taking durella here complaining of 1 day of asthma exacerbation and wheezing. Denies cough and congestion, sore throat, fever and chills. Refuses chest x-ray. Sitting comfortably with minimal wheezing. Requesting refill of durella Denies abdominal pain, nausea vomiting, headache and dizziness. Has not taken any other medication for symptom relief. Denies tobacco smoke, drug use, alcohol intake, and exposure to the recent fires. Allergies: Coded Allergies: No Known Allergies (Unverified , 05/06/19) Patient History Past Medical History: see triage record Past Surgical History: unable to obtain Pertinent Family History: none Last Menstrual Period: 08/27/19 Now: No Immunizations: UTD Reviewed Nursing Documentation: PMH: Agreed; PSxH: Agreed Nursing Documentation-PMH Past Medical History: No History, Except For Hx Asthma: Yes Review of Systems All Other Systems: negative except mentioned in HPI Physical Exam Vital Signs Date Time Temp Pulse Resp B/P (MAP) Pulse Ox O2 Delivery O2 Flow Rate FiO2 09/03/19 15:49 98.8 82 18 112/71 (85) 96 Room Air 09/03/19 16:12 21 Sp02 EP Interpretation: reviewed, normal General Appearance: no apparent distress, alert, GCS 15, non-toxic Head: normocephalic, atraumatic Eyes: bilateral eye normal inspection, bilateral eye PERRL ENT: hearing grossly normal, normal pharynx, no angioedema, normal voice Neck: full range of motion, supple/symm/no masses Respiratory: chest non-tender, normal breath sounds, no rhonchi, no respiratory distress, no retraction, speaking full sentences, wheezing - diffuse Cardiovascular #1: regular rate, rhythm, no edema, no murmur Gastrointestinal: normal bowel sounds, non tender, soft, non-distended, no guarding, no rebound Rectal: deferred Genitourinary: no CVA tenderness Musculoskeletal: back normal, gait/station normal, normal range of motion, non- tender, no calf tenderness Neurologic: alert, oriented x3, responsive, motor strength/tone normal, sensory intact, speech normal Psychiatric: judgement/insight normal, memory normal, mood/affect normal, no suicidal/homicidal ideation Skin: no rash Lymphatic: normal inspection Medical Decision Making JODY Attestation All my diagnosis and treatment plans were reviewed ad discussed with my supervising physician Dr. Lozano Diagnostic Impression: Primary Impression: Asthma exacerbation ER Course 44-year-old female with history of asthma currently taking durella here complaining of 1 day of asthma exacerbation and wheezing. Denies cough and congestion, sore throat, fever and chills. Refuses chest x-ray. Sitting comfortably with minimal wheezing. Requesting refill of durella Denies abdominal pain, nausea vomiting, headache and dizziness. Has not taken any other medication for symptom relief. Denies tobacco smoke, drug use, alcohol intake, and exposure to the recent fires. Ddx considered but are not limited to:, Asthma exacerbation ,bronchitis, PNA, URI viral, bacterial bronchitis Vital signs: are WNL, pt. is afebrile H&PE are most consistent with: Asthma exacerbation ORDERS: durella, chest x-ray however patient refused to get chest x-ray done ED INTERVENTIONS: DuoNeb x3 doses DISCHARGE: At this time pt. is stable for d/c to home. Will provide printed patient care instructions, and any necessary prescriptions. Care plan and follow up instructions have been discussed with the patient prior to discharge. Patient follow-up with primary care, if worsening symptoms return to the emergency room Last Vital Signs Date Time Temp Pulse Resp B/P (MAP) Pulse Ox O2 Delivery O2 Flow Rate FiO2 09/03/19 16:41 98.8 80 20 112/71 99 Room Air 21 Disposition: HOME, SELF-CARE Condition: Stable Scripts Mometasone/Formoterol (DULERA 100 MCG/5 MCG INHALER) 13 Gm Hfa.aer.ad 2 PUFFS INH EVERY 12 HOURS, #13 GM Prov: Zach Anderson 09/03/19 Patient Instructions: Asthma, Adult Additional Instructions: Use your inhaler as needed, continue taking your oral steroids. If worsening symptoms return to the emergency room. Follow-up with your primary care provider Zach Anderson Sep 03, 2019 16:44
--- NOTE | 2019-09-03 16:50 | NUR ---
ER DISCHARGE NOTE: Patient is cleared to be discharged per ERMD, pt is aox4, on room air, with stable vital signs. pt was given dc and prescription instructions, pt was able to verbalize understanding, pt is able to ambulate with steady gait. pt took all belongings.
[2019-09-03] MEDS ORDERED: DULERA 100 MCG/13 GM INH (16:52)
[2019-09-03 16:54] VITALS: BP 112/71
== END 2019-09-03 17:00 | disposition home or self-care (01) ==
LOC: EMR 16:40
DX: J45.901 Unspecified asthma with (acute) exacerbation (principal)
CPT/HCPCS: 94640; 94664; Z7502; 99284; J7620

== ENCOUNTER 2019-11-19 15:11 | Emergency (ER) | payer MEDICAID ==
[~2019-11-19] VITALS: Ht 167.6 cm; Wt 58.1 kg
[2019-11-19 15:25] VITALS: BP 116/70
--- NOTE | 2019-11-19 15:25 | NUR ---
ED Nurse Note: Patient arrived to ED from home c/o asthma exacerbation for 4 days. Patient states she has been slightly more short of breath with exertion, but at rest she feels ok. Patient AxO x 4, no s/s of acute distress. Urine collected and sent to lab.
--- NOTE | 2019-11-19 15:43 | Emergency Room Report ---
History of Present Illness General Chief Complaint: Asthma Source: Patient Present Illness HPI 44-year-old female with screening 6 weeks here complaining of 1 week of cough and congestion and asthma exacerbation. Patient reports that she has been before multiple times however does not recall the number. Denies any past miscarriage or selective . Denies any abdominal pain, vaginal spotting at this time. Has an [facility] visit tomorrow. Is taking vitamins. Reports that she has been using her Dulera inhaler with some improvement with back to have a refill. Also has been coughing phlegm, complaining of sore throat and congestion x1 week. Denies any chest pain, shortness of breath, palpitation, headache and dizziness at this time. Denies urinary frequency and urgency. Allergies: Coded Allergies: No Known Allergies (Unverified , 05/06/19) Patient History Past Medical History: see triage record Past Surgical History: unable to obtain Pertinent Family History: none Last Menstrual Period: 09/20/19 Now: Yes Immunizations: UTD Reviewed Nursing Documentation: PMH: Agreed; PSxH: Agreed Nursing Documentation-PMH Past Medical History: No History, Except For Hx Asthma: Yes Review of Systems All Other Systems: negative except mentioned in HPI Physical Exam Vital Signs Date Time Temp Pulse Resp B/P (MAP) Pulse Ox O2 Delivery O2 Flow Rate FiO2 11/19/19 15:16 98.4 82 18 116/70 (85) 99 Room Air Sp02 EP Interpretation: reviewed, normal General Appearance: no apparent distress, alert, GCS 15, non-toxic Head: normocephalic, atraumatic Eyes: bilateral eye normal inspection, bilateral eye PERRL ENT: hearing grossly normal, no angioedema, normal voice, nasal congestion, tonsillar swelling, pharyngeal erythema, tonsillar exudate Neck: full range of motion, thyroid normal, no meningismus, supple/symm/no masses Respiratory: chest non-tender, lungs clear, normal breath sounds, no rhonchi, no respiratory distress, no accessory muscle use, no wheezing, speaking full sentences Cardiovascular #1: regular rate, rhythm, no edema, no murmur, normal capillary refill Gastrointestinal: non tender, soft Genitourinary: no CVA tenderness Musculoskeletal: back normal Neurologic: alert, EOM palsy Psychiatric: judgement/insight normal, memory normal, mood/affect normal, no suicidal/homicidal ideation Skin: no rash Lymphatic: no adenopathy Medical Decision Making PA Attestation All diagnoses and treatment plans were reviewed and discussed with my supervising physician Dr. Mares Diagnostic Impression: Primary Impression: Strep pharyngitis Additional Impressions: URI (upper respiratory infection) Asthma ER Course 44-year-old female with screening 6 weeks here complaining of 1 week of cough and congestion and asthma exacerbation. Patient reports that she has been before multiple times however does not recall the number. Denies any past miscarriage or selective . Denies any abdominal pain, vaginal spotting at this time. Has an [facility] visit tomorrow. Is taking vitamins. Reports that she has been using her Dulera inhaler with some improvement with back to have a refill. Also has been coughing phlegm, complaining of sore throat and congestion x1 week. Denies any chest pain, shortness of breath, palpitation, headache and dizziness at this time. Denies urinary frequency and urgency. Ddx considered but are not limited to: strep pharyngitis, URI, tonsillitis, peritonsillar abscess, influenza Vital signs: are WNL, pt. is afebrile H&PE are most consistent with: Strep pharyngitis, asthma, upper respiratory infection ORDERS: Patient has not had a breathing treatment this time his lungs are clear to auscultation, Dulera, amoxicillin, guaifenesin ED INTERVENTIONS: None required at this time. DISCHARGE: At this time pt. is stable for d/c to home. Will provide printed patient care instructions, and any necessary prescriptions. Care plan and follow up instructions have been discussed with the patient prior to discharge. Patient to follow-up with [facility], take medication as directed, worsening symptoms return to emergency room Last Vital Signs Date Time Temp Pulse Resp B/P (MAP) Pulse Ox O2 Delivery O2 Flow Rate FiO2 11/19/19 15:25 82 18 Room Air 11/19/19 15:25 98.4 116/70 99 Disposition: HOME, SELF-CARE Condition: Stable Scripts Mometasone/Formoterol (DULERA 200 MCG/5 MCG INHALER) 13 Gm Hfa.aer.ad 2 PUFFS IH BID, #13 GM Prov: Zach Anderson 11/19/19 Guaifenesin* (GUAIFENESIN) 100 Mg/5 Ml Liquid 5 ML ORAL Q6H, #120 ML 0 Refills Prov: Zach Anderson 11/19/19 Amoxicillin* (AMOXIL*) 500 Mg Capsule 500 MG ORAL EVERY 12 HOURS for 10 Days, #20 CAP Prov: Zach Anderson 11/19/19 Patient Instructions: Asthma, Adult, Pharyngitis, [id number], Upper Respiratory Infection, Adult, [id number] Additional Instructions: Take medication as directed, follow-up with your primary care provider, follow- up with your [facility] regarding your status, if worsening symptoms return to the emergency room Zach Anderson Nov 19, 2019 15:43
[2019-11-19] MEDS ORDERED: AMOXICILLIN500 MG ORAL (15:45)
[2019-11-19] MEDS ORDERED: GUAIFENESI100 MG/5 M ORAL (15:45)
[2019-11-19] MEDS ORDERED: DULERA 200 MCG/13 GM IH (15:45)
[2019-11-19 15:50] VITALS: BP 116/70
--- NOTE | 2019-11-19 15:50 | NUR ---
ED Nurse Note: Patient cleared for DC by Zach VERA. Patient AxO x 4, no s/s of acute distress. ID band removed. Patient walks with steady gait, took all belongings.
== END 2019-11-19 15:50 | disposition home or self-care (01) ==
LOC: EMR 15:44
DX: O98.811 Other maternal infectious and parasitic diseases complicating pregnancy, first trimester (principal); J02.0 Streptococcal pharyngitis; J45.909 Unspecified asthma, uncomplicated; O26.91 Pregnancy related conditions, unspecified, first trimester; Z3A.01 Less than 8 weeks gestation of pregnancy
CPT/HCPCS: 99282

== ENCOUNTER 2020-03-10 14:14 | Emergency (ER) | payer MEDICAID ==
[~2020-03-10] VITALS: Ht 167.6 cm; Wt 55.8 kg
[~2020-03-10 14:14] MED LIST changes: +AMOXICILLIN500 MG ORAL; +GUAIFENESI100 MG/5 M ORAL
--- NOTE | 2020-03-10 14:23 | NUR ---
ED Nurse Note: Patient walked in from home for medication refill- Dulera inhaler. Per pt, she wont get a refill until next week. Pt has hx of asthma. No SOB. Afebrile. VSS.
[2020-03-10 14:25] VITALS: BP 108/64
--- NOTE | 2020-03-10 14:46 | Emergency Room Report ---
History of Present Illness General Chief Complaint: Medication Refill Source: Patient Present Illness HPI 45-year-old female presents to the emergency department requesting medication refill. Patient reports she just ran out of her Dulera inhaler this morning. She reports intermittent wheezes she denies cough. Patient states that she has been unable to contact her provider for refill. Patient denies fevers, chills, sore throat, shortness of breath or difficulty breathing. No other aggravating or relieving factors. Patient denies pain. Allergies: Coded Allergies: No Known Allergies (Unverified , 05/06/19) COVID-19 Screening Contact w/high risk pt: No Recent Travel to affected area: No Experienced COVID-19 symptoms?: No Patient History Past Medical History: asthma Last Menstrual Period: 03/07/2020 Now: No Reviewed Nursing Documentation: PMH: Agreed; PSxH: Agreed Nursing Documentation-PMH Hx Asthma: Yes Review of Systems All Other Systems: negative except mentioned in HPI Physical Exam Vital Signs Date Time Temp Pulse Resp B/P (MAP) Pulse Ox O2 Delivery O2 Flow Rate FiO2 03/10/20 14:19 98.2 88 20 108/64 (79) 96 Room Air Sp02 EP Interpretation: reviewed, normal General Appearance: no apparent distress, alert, GCS 15, non-toxic Head: normocephalic, atraumatic Eyes: bilateral eye normal inspection, bilateral eye PERRL ENT: hearing grossly normal, normal voice Neck: full range of motion Respiratory: lungs clear, normal breath sounds, speaking full sentences, other - scant expiratory wheeze in upper airway bilaterally. Cardiovascular #1: regular rate, rhythm, no edema, normal capillary refill Musculoskeletal: normal range of motion, gait/station normal, non-tender Neurologic: alert, motor strength/tone normal, oriented x3, sensory intact, responsive, speech normal Psychiatric: judgement/insight normal Skin: normal color, normal inspection Lymphatic: no adenopathy Medical Decision Making PA Attestation Dr. Adair is my supervising Physician whom patient management has been discussed with. Diagnostic Impression: Primary Impression: Encounter for medication refill ER Course 45-year-old female presents to the emergency department requesting medication refill. Patient reports she just ran out of her Dulera inhaler this morning. She reports intermittent wheezes she denies cough. Patient states that she has been unable to contact her provider for refill. Patient denies fevers, chills, sore throat, shortness of breath or difficulty breathing. No other aggravating or relieving factors. Patient denies pain. Ddx considered but are not limited to: drug seeking, OD, Asthma exacerbation, COPD, URI, COVID-19 just to name a few. Vital signs: are WNL, pt. is afebrile H&PE are most consistent with need for medication refill. ORDERS: none required at this time, the diagnosis is clinical ED INTERVENTIONS: None required at this time. -I do not identify an emergent condition at this time. With current presentation , pt. is stable for close outpatient follow up and conservative treatment. D/ w pt. to return promptly to ED with worsening or new symptoms.- Pt. verbalizes' understanding and agreement with proposed treatment plan. This patient was evaluated in the context of the global COVID-19 pandemic, which necessitated consideration that the patient might be at risk for infection with the SARS-COV-2 virus that causes COVID-19. Institutional protocols and algorithms that pertaining to the evaluation of patients at risk for COVID-19 are in a state of rapid change based on information released by multiple regulatory bodies including the CDC and federal and state organizations. These policies and algorithms were followed during the patient' s care in the emergency department DISCHARGE: At this time pt. is stable for d/c to home. Will provide printed patient care instructions, and any necessary prescriptions. Care plan and follow up instructions have been discussed with the patient prior to discharge. Last Vital Signs Date Time Temp Pulse Resp B/P (MAP) Pulse Ox O2 Delivery O2 Flow Rate FiO2 03/10/20 14:25 98.2 89 20 108/64 96 Room Air Disposition: HOME, SELF-CARE Condition: Stable Scripts Mometasone/Formoterol (DULERA 200 MCG/5 MCG INHALER) 13 Gm Hfa.aer.ad 2 PUFFS IH Q12HR, #13 GM Prov: Pat Gutierrez 03/10/20 Referrals: [facility] Patient Instructions: Medicine Refill at the Emergency Department Additional Instructions: Take medications as directed. Follow up with a Primary Care Provider in 3-5 days, even if your symptoms have resolved. --Please review list of primary care clinics, if you do not already have a primary care provider Return sooner to ED if new symptoms occur, or current symptoms become worse. - Please note that this Emergency Department Report was dictated using [employer] driver technology software, occasionally this can lead to erroneous entry secondary to interpretation by the dictation equipment. Pat Gutierrez March 10, 2020 14:46
[2020-03-10] MEDS ORDERED: DULERA 200 MCG/13 GM IH (14:49)
--- NOTE | 2020-03-10 14:52 | NUR ---
ER DISCHARGE NOTE: Patient is cleared to be discharged per ERMD, pt is aox4, on room air, with stable vital signs. pt was given dc and prescription instructions, pt was able to verbalize understanding, pt id band removed. pt is able to ambulate with steady gait. pt took all belongings.
== END 2020-03-10 14:52 | disposition home or self-care (01) ==
LOC: EMR 14:35
DX: Z76.0 Encounter for issue of repeat prescription (principal); J45.909 Unspecified asthma, uncomplicated; R06.2 Wheezing
CPT/HCPCS: 99282

== ENCOUNTER 2020-06-24 14:15 | Emergency (ER) | payer MEDICAID ==
[~2020-06-24] VITALS: Ht 160 cm; Wt 55.3 kg
--- NOTE | 2020-06-24 14:31 | NUR ---
ED Nurse Note: Pt reports that she is "out of my inhaler, im completey out, it fire season i just want a medicatin refill"
[2020-06-24 14:41] VITALS: BP 118/71
--- NOTE | 2020-06-24 14:43 | Emergency Room Report ---
History of Present Illness General Chief Complaint: Medication Refill Source: Patient Present Illness HPI 45-year-old female presents to the emergency department requesting medication refill of her Dulera inhaler. Patient reports she takes this medication for her history of asthma. She states she has been out for 4 days. Patient reports intermittent cough. Patient denies wheezing at this time. Patient denies severe shortness of breath. Patient states she is unable to make an appointment with her PCP in a timely manner. No other aggravating or relieving factors at this time. Patient denies chest pain or palpitations. She denies fevers or chills. She denies suspicion for URI. She denies pain. Allergies: Coded Allergies: No Known Allergies (Unverified , 05/06/19) COVID-19 Screening Contact w/high risk pt: No Recent Travel to affected area: No Experienced COVID-19 symptoms?: No Patient History Past Medical History: see triage record Past Surgical History: none Pertinent Family History: none Now: No Reviewed Nursing Documentation: PMH: Agreed; PSxH: Agreed Nursing Documentation-PMH Past Medical History: No History, Except For Hx Asthma: Yes Review of Systems All Other Systems: negative except mentioned in HPI Physical Exam Sp02 EP Interpretation: reviewed, normal General Appearance: no apparent distress, alert, GCS 15, non-toxic Head: normocephalic, atraumatic Eyes: bilateral eye normal inspection, bilateral eye PERRL ENT: hearing grossly normal, normal voice Neck: full range of motion Respiratory: chest non-tender, lungs clear, normal breath sounds, no respiratory distress, no accessory muscle use, no wheezing, speaking full sentences Cardiovascular #1: regular rate, rhythm, no edema, normal capillary refill Musculoskeletal: normal range of motion, gait/station normal, non-tender Neurologic: alert, motor strength/tone normal, oriented x3, sensory intact, responsive, speech normal Psychiatric: judgement/insight normal Skin: normal color Medical Decision Making PA Attestation Dr. Rogers is my supervising Physician whom patient management has been discussed with. Diagnostic Impression: Primary Impression: Encounter for medication refill ER Course 45-year-old female presents to the emergency department requesting medication refill of her Dulera inhaler. Patient reports she takes this medication for her history of asthma. She states she has been out for 4 days. Patient reports intermittent cough. Patient denies wheezing at this time. Patient denies severe shortness of breath. Patient states she is unable to make an appointment with her PCP in a timely manner. No other aggravating or relieving factors at this time. Patient denies chest pain or palpitations. She denies fevers or chills. She denies suspicion for URI. She denies pain. Ddx considered but are not limited to: drug seeking, OD, Asthma, COPD, URI, PE, just to name a few. Vital signs: are WNL, pt. is afebrile H&PE are most consistent with need for medication refill. ORDERS: none required at this time, the diagnosis is clinical ED INTERVENTIONS: None required at this time. DISCHARGE: At this time pt. is stable for d/c to home. Will provide printed patient care instructions, and any necessary prescriptions. Care plan and follow up instructions have been discussed with the patient prior to discharge. Disposition: HOME, SELF-CARE Condition: Stable Patient Instructions: Medicine Refill at the Emergency Department Additional Instructions: Take medications as directed. Follow up with a Primary Care Provider in 3-5 days, even if your symptoms have resolved. Return sooner to ED if new symptoms occur, or current symptoms become worse. - Please note that this Emergency Department Report was dictated using [email or web address] worker technology software, occasionally this can lead to erroneous entry secondary to interpretation by the dictation equipment. Pat Gutierrez Jun 24, 2020 14:43
[2020-06-24] MEDS ORDERED: DULERA 200 MCG/13 GM IH (14:44)
--- NOTE | 2020-06-24 15:24 | NUR ---
ER DISCHARGE NOTE: Patient is cleared to be discharged per ERMD, Patient was given dc and prescription instructions, pt was able to verbalize understanding, pt id band removed. pt is able to ambulate with steady gait. pt took all belongings.
== END 2020-06-24 15:20 | disposition home or self-care (01) ==
LOC: EMR 14:45
DX: Z76.0 Encounter for issue of repeat prescription (principal); R05 Cough
CPT/HCPCS: 99282